=== PATIENT | female | born 1960 | race Caucasian/White ===

== ENCOUNTER → 2016-11-27 | Outpatient (CLI) | payer OTHER ==
[~2016-11-27] VITALS: Ht 165.1 cm; Wt 117.9 kg
[~2016-11-27] MED LIST: ALEVE220 MG PO; CELEBREX50 MG PO; METFORMIN HCL500 M4 PO; ULTRAM50 MG PO; ZANTAC300 MG PO
[2016-11-27 11:10] LABS: POINT-OF-CARE METER ID UU13113694
== END | disposition home or self-care (01) ==
LOC: AMB 10:23
PROVIDERS: Internal Medicine
PROC: 0DJD8ZZ Inspection of Lower Intestinal Tract, Via Natural or Artificial Opening Endoscopic (ICD-10-PCS; principal; 2016-11-27)
DX: Z12.11 Encounter for screening for malignant neoplasm of colon (principal); K64.8 Other hemorrhoids; E11.9 Type 2 diabetes mellitus without complications; Z79.84 Long term (current) use of oral hypoglycemic drugs; E66.01 Morbid (severe) obesity due to excess calories; Z68.41 Body mass index [BMI] 40.0-44.9, adult; K76.0 Fatty (change of) liver, not elsewhere classified; M19.90 Unspecified osteoarthritis, unspecified site; K21.9 Gastro-esophageal reflux disease without esophagitis; Z82.49 Family history of ischemic heart disease and other diseases of the circulatory system; Z80.1 Family history of malignant neoplasm of trachea, bronchus and lung; Z87.891 Personal history of nicotine dependence
CPT/HCPCS: 82948

== ENCOUNTER 2017-05-24 08:35 | Emergency (ER) | payer OTHER ==
[~2017-05-24] VITALS: Ht 165.1 cm; Wt 118.0 kg
[2017-05-24 08:58] LABS: MCH 28.3 PG (29.0-34.0); MCHC 32.4 G/DL (30.0-36.0); MCV 87.3 FL (83-99); MEAN PLAT.VOLUME 10.1 uM^3 (9.5-12.4); PLATELET COUNT 272 K/uL (156-360); RBC DIS.WIDTH-CV 14.6 % (11.8-14.6); RED BLOOD COUNT 4.81 M/uL (3.80-5.20); WHITE BLOOD COUNT 9.1 K/uL (4.1-10.2)
[2017-05-24 09:05] LABS: CHLORIDE 105 mEq/L (99-109); POTASSIUM 3.8 mEq/L (3.7-5.4); SODIUM 140 mEq/L (136-147)
[2017-05-24 09:07] LABS: GLUCOSE 133 mg/dL (70-99)
[2017-05-24 09:08] LABS: ANION GAP 13 MEQ/L (2-14)
[2017-05-24 09:11] LABS: GFR ESTIMATE (CALCULATED) > 59 mL/min/
[2017-05-24 09:12] LABS: UREA NITROGEN (BUN) 19 mg/dL (9-23)
[2017-05-24 09:15] LABS: ADD MIUA? YES; BILIRUBIN NEGATIVE; BLOOD MODERATE; COLOR STRAW ((YELLOW)); GLUCOSE (STRIP) NEGATIVE; KETONES NEGATIVE; LEUKOCYTES NEGATIVE; NITRITE NEGATIVE; PROTEIN (STRIP) NEGATIVE; SPECIFIC GRAVITY 1.012 (1.000-1.030); UROBILINOGEN 0.2 MG/DL (0.2-1.0)
[2017-05-24 09:17] LABS: BACTERIA RARE /HPF; EPITHELIAL CELLS RARE /HPF; MUCUS TRACE /LPF; RED BLOOD CELLS 30-40 /HPF (0-5); UCUL ADDED? NO; WHITE BLOOD CELLS 0-5 /HPF (0-5)
[2017-05-24 11:46] VITALS: BP 122/62
== END 2017-05-24 11:47 | disposition home or self-care (01) ==
LOC: EME 08:35
DX: N20.0 Calculus of kidney (principal); Z87.442 Personal history of urinary calculi; K21.9 Gastro-esophageal reflux disease without esophagitis
CPT/HCPCS: 74176; 80048; 81003; 85027; 99281; 99284; J1885; J2405; J7030